=== PATIENT | female | born 1975 | race Caucasian/White ===

== ENCOUNTER 2016-09-16 09:52 | Emergency (ER) | payer OTHER ==
--- NOTE | 2016-09-16 10:16 | UC ---
Respiratory Complaint HPI - HPI Summary HPI Summary: patient has had cough and congestion, increased SOB for 3 weeks, she is a heavy smoker. - History of Current Complaint Chief Complaint: UCRespiratory Stated Complaint: SINUS COMPLAINT Time Seen by Provider: 09/16/16 10:04 Hx Obtained From: Patient Hx Last Menstrual Period: 07/07/16 ?: No Onset/Duration: Sudden Onset, Lasting Weeks Timing: Constant Severity Initially: Mild Severity Currently: Moderate Pain Intensity: 6 Pain Scale Used: 0-10 Numeric Character: Cough: Productive Aggravating Factors: Exertion, Deep Breaths, Recumbent Position Alleviating Factors: Nothing Associated Signs And Symptoms: Positive: Wheezing, URI, Nasal Congestion, Sinus Discomfort - Risk Factors Pulmonary Embolism Risk Factors: Negative - Allergies/Home Medications Allergies/Adverse Reactions: Allergies Allergy/AdvReac Type Severity Reaction Status Date / Time No Known Allergies Allergy Verified 09/16/16 09:59 Home Medications: Home Medications NK [No Home Medications Reported] 09/16/16 [History Confirmed 09/16/16] PMH/Surg Hx/FS Hx/Imm Hx Previously Healthy: Yes - Surgical History Surgical History: Yes Surgery Procedure, Year, and Place: Tubal ligation, 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 Growth removed from uterus 2012 - Family History Known Family History: Positive: None - neg for HTn or CAD - Social History Alcohol Use: None Substance Use Type: None Smoking Status (MU): Heavy Every Day Tobacco Smoker Type: Cigarettes Amount Used/How Often: 1/2 pack per day Length of Time of Smoking/Using Tobacco: 30yrs Have You Smoked in the Last Year: Yes - Immunization History Most Recent Influenza Vaccination: not this season Review of Systems Constitutional: Chills Skin: Negative Eyes: Negative ENT: Sore Throat, Nasal Discharge Respiratory: Shortness Of Breath, Cough Cardiovascular: Negative Gastrointestinal: Negative Genitourinary: Negative Motor: Negative Neurovascular: Negative Musculoskeletal: Negative Neurological: Headache Psychological: Negative All Other Systems Reviewed And Are Negative: Yes Physical Exam Triage Information Reviewed: Yes Appearance: Well-Nourished, Ill-Appearing, Pain Distress Vital Signs: Initial Vital Signs Temp 98.2 F 09/16/16 09:59 Pulse 68 09/16/16 09:59 Resp 16 09/16/16 09:59 BP 98/58 09/16/16 09:59 Pulse Ox 100 09/16/16 09:59 Vital Signs Reviewed: Yes Eye Exam: Normal Eyes: Positive: Conjunctiva Clear ENT: Positive: Pharyngeal erythema, Nasal congestion, TMs normal Dental Exam: Normal Neck exam: Normal Neck: Positive: Supple, Nontender, No Lymphadenopathy Respiratory: Positive: Chest non-tender, No respiratory distress, No accessory muscle use, Decreased breath sounds, Wheezing, Inspiration Cardiovascular Exam: Normal Cardiovascular: Positive: RRR, No Murmur, Pulses Normal Abdominal Exam: Normal Abdomen Description: Positive: Nontender, No Organomegaly, Soft Bowel Sounds: Positive: Present Musculoskeletal Exam: Normal Musculoskeletal: Positive: Strength Intact, ROM Intact, No Edema Neurological Exam: Normal Neurological: Positive: Alert, Muscle Tone Normal Psychological Exam: Normal Psychological: Positive: Age Appropriate Behavior Skin Exam: Normal UC Diagnostic Evaluation - Laboratory O2 Sat by Pulse Oximetry: 100 Respiratory Course/Dx - Course Course Of Treatment: History obtained, exam performed, educated on the detrimental effects of smoking on sinus and respiratory issues. prescribed prednisone and ventolin, spacer provided. - Differential Dx/Diagnosis Differential Diagnosis/HQI/PQRI: Bronchitis, Influenza, Laryngitis, Sinusitis Provider Diagnoses: tobacco abuse. sinus congestion. bronchitis Discharge - Discharge Plan Condition: Stable Disposition: HOME Patient Education Materials: Acute Bronchitis (ED) Additional Instructions: You are being treated by bronchitis. Take the medication as prescribed. The cough can last 3-4 weeks. Tobacco use, prolongs and increases the frequency of bronchitis. Increase your fluid intake and get plenty of rest.
[2016-09-16 10:18] VITALS: BP 98/58
== END 2016-09-16 10:27 | disposition home or self-care (01) ==
LOC: UCCORT 09:52
DX: J32.9 Chronic sinusitis, unspecified (principal); J98.01 Acute bronchospasm; F17.210 Nicotine dependence, cigarettes, uncomplicated
CPT/HCPCS: 99212; G0463

== ENCOUNTER 2019-05-16 11:02 | Emergency (ER) | payer OTHER ==
[2019-05-16 11:25] VITALS: BP 102/65
--- NOTE | 2019-05-16 11:32 | UC ---
Knee Pain HPI - HPI Summary HPI Summary: 43-year-old female presents with complaints of right knee pain after she slipped on a wet surface in the parking lot at work causing a twisting injury to her knee. States she was able to walk and bear weight immediately after the injury although with some discomfort. Pain is located to the medial aspect of her right knee. Worsens with flexion and extension as well as weightbearing. She took acetaminophen prior to arrival with some improvement in the pain. Denies any numbness or tingling. - History of Current Complaint Chief Complaint: UCLowerExtremity Stated Complaint: WC-RT KNEE INJURY Time Seen by Provider: 05/16/19 11:22 Hx Obtained From: Patient Hx Last Menstrual Period: year ago Pain Intensity: 7 - Allergies/Home Medications Allergies/Adverse Reactions: Allergies Allergy/AdvReac Type Severity Reaction Status Date / Time No Known Allergies Allergy Verified 05/16/19 11:25 Home Medications: Home Medications NK [No Home Medications Reported] 05/16/19 [History Confirmed 05/16/19] PMH/Surg Hx/FS Hx/Imm Hx Previously Healthy: Yes - Denies significant PMH - Surgical History Surgical History: Yes Surgery Procedure, Year, and Place: Tubal ligation, 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 Growth removed from uterus 2012 - Family History Known Family History: Positive: None - Social History Occupation: Employed Full-time Lives: Alone Alcohol Use: None Substance Use Type: None Smoking Status (MU): Current Every Day Smoker Type: Cigarettes Amount Used/How Often: 1/2 pack per day Length of Time of Smoking/Using Tobacco: 30yrs Have You Smoked in the Last Year: Yes - Immunization History Most Recent Influenza Vaccination: not this season Review of Systems All Other Systems Reviewed And Are Negative: Yes Constitutional: Positive: Negative Skin: Negative: Bruising Respiratory: Positive: Negative Cardiovascular: Positive: Negative Gastrointestinal: Positive: Negative Genitourinary: Positive: Negative Motor: Negative: Weakness Neurovascular: Negative: Decreased Sensation Musculoskeletal: Positive: Other: - See HPI Neurological: Positive: Negative Is Patient Immunocompromised?: No Physical Exam - Summary Physical Exam Summary: GENERAL APPEARANCE: Well developed, well nourished, alert and cooperative, and appears to be in no acute distress. CARDIAC: Normal S1 and S2. No S3, S4 or murmurs. Rhythm is regular. There is no peripheral edema, cyanosis or pallor. Extremities are warm and well perfused. Capillary refill is less than 2 seconds. Peripheral pulses intact. LUNGS: Clear to auscultation without rales, rhonchi, wheezing or diminished breath sounds. ABDOMEN: Positive bowel sounds. Soft, nondistended, nontender. No guarding or rebound. No masses or hepatosplenomegally. MUSKULOSKELETAL: Normal muscular development. Limping gait. EXTREMITIES: Tenderness to the medial joint line of the right knee. No gross deformity or ecchymosis noted. Full ROM with discomfort at full extension and flexion. No laxity of the knee. Circulation and sensation intact. SKIN: Skin normal color, texture and turgor with no lesions or eruptions. Triage Information Reviewed: Yes Vital Signs: Initial Vital Signs Temp 97.8 F 05/16/19 11:19 Pulse 72 05/16/19 11:19 Resp 16 05/16/19 11:19 BP 102/65 05/16/19 11:19 Pulse Ox 99 05/16/19 11:19 Vital Signs Reviewed: Yes Diagnostics - Radiology No standard instances Radiology Interpretation Completed By: Radiologist Summary of Radiographic Findings: Exam Date: 05/16/19. Order Information: KNEE RIGHT 4+ VWS. HISTORY: pain s/p twisting injury . COMPARISONS: None relevant available at the time of dictation. VIEWS: 4, Frontal, lateral, axial, and oblique views of the right knee. FINDINGS: BONE DENSITY: Normal. BONES: There is no displaced fracture. JOINTS: There is no arthropathy. There is no suprapatellar joint effusion or lipohemarthrosis. ALIGNMENT: There is no dislocation. SOFT TISSUES: Unremarkable. OTHER FINDINGS: None. IMPRESSION: NO ACUTE OSSEOUS INJURY. Knee Pain Course/Dx - Course Course Of Treatment: 43-year-old female presents with complaints of right knee pain after she slipped on a wet surface in the parking lot at work causing a twisting injury to her knee. States she was able to walk and bear weight immediately after the injury although with some discomfort. Pain is located to the medial aspect of her right knee. Worsens with flexion and extension as well as weightbearing. She took acetaminophen prior to arrival with some improvement in the pain. Denies any numbness or tingling. Afebrile. Vital signs stable. Patient had tenderness to the medial joint line of the right knee. No gross deformity or ecchymosis noted. Full ROM with discomfort at full extension and flexion. No laxity of the knee. Circulation and sensation intact. Remainder of exam was unremarkable. X-ray of the knee showed no acute osseous injury. Recommending conservative treatment for a right knee sprain including [id number] analgesics and RICE. Patient was placed in an Junior wrap by the RN. She is to follow-up with orthopedic surgery in 7 days if no improvement in symptoms. Anticipatory guidance and warning symptoms were reviewed with the patient. Verbalizes understanding and agrees with plan of care. - Differential Dx/Diagnosis Differential Diagnosis/HQI/PQRI: Contusion, Dislocation, Fracture (Closed), Internal Derangement Of Knee, Sprain Provider Diagnosis: Right knee sprain Discharge ED - Sign-Out/Discharge Documenting (check all that apply): Patient Departure All imaging exams completed and their final reports reviewed: Yes - Discharge Plan Condition: Stable Disposition: HOME Patient Education Materials: Knee Sprain (ED) Referrals: Otto Tilley PA [Primary Care Provider] - Herrera Soriano MD [Medical Doctor] - 7 Days Additional Instructions: The x-ray performed in the clinic today showed no evidence of a fracture or dislocation. I suspect that you have a right knee sprain. Rest the knee as much as possible. You may continue to walk and bear weight as tolerated. Use the JUNIOR wrap that was applied in the clinic today to help manage any swelling. You may remove to sleep and shower but should wear at all other times. Apply ice to the affected area for 15-20 minutes at least 4 times a day to help with the pain and swelling. Elevate the leg to help reduce swelling. Take acetaminophen (Tylenol) or ibuprofen (Advil, Motrin) according to directions as needed for pain. Follow up with orthopedic surgery in 7 days if symptoms do not improve. Seek immediate medical attention if you have severe pain not managed with pain medication, you are unable to walk or bear any weight, develop numbness or tingling in the leg, foot, or toes, or have any worsening of symptoms. - Billing Disposition and Condition Condition: STABLE Disposition: Home
== END 2019-05-16 12:08 | disposition home or self-care (01) ==
LOC: UCCORT 11:02
DX: S83.91XA Sprain of unspecified site of right knee, initial encounter (principal); W01.0XXA Fall on same level from slipping, tripping and stumbling without subsequent striking against object, initial encounter; Y93.9 Activity, unspecified; Y92.481 Parking lot as the place of occurrence of the external cause; Y99.0 Civilian activity done for income or pay; F17.210 Nicotine dependence, cigarettes, uncomplicated
CPT/HCPCS: 99211; G0463